=== PATIENT | female | born 1960 | race Caucasian/White ===

== ENCOUNTER 2016-06-05 13:14 | Emergency (ER) | payer MEDICARE, OTHER ==
[~2016-06-05] VITALS: Ht 170.2 cm; Wt 104.5 kg
[~2016-06-05 13:14] MED LIST: ATOR20TA86 PO; CARBXR400 PO; DULO60CA44 PO; FLUO20CA30 PO; METF850T2 PO; NAPR500T6 PO; OMEP20CA10 PO; PREM625 PO
[2016-06-05 13:22] LABS: GLUCOSE,POINT OF CARE 240 MG/DL (70-110)
[2016-06-05] MEDS ORDERED: INSLAN SQ (13:23)
[2016-06-05] MEDS ORDERED: TRAZ-144 PO (13:23)
[2016-06-05] MEDS ORDERED: HYDR25TA PO (13:23)
[2016-06-05] MEDS ORDERED: XALA2.5OS OU (13:23)
[2016-06-05] MEDS ORDERED: GABA-531 PO (13:23)
[2016-06-05] MEDS ORDERED: LEVO25TA9 PO (13:23)
[2016-06-05 16:58] VITALS: BP 150/100
== END 2016-06-05 17:01 | disposition home or self-care (01) ==
LOC: EMS 13:15
DX: S60.221A Contusion of right hand, initial encounter (principal); I10 Essential (primary) hypertension; E11.9 Type 2 diabetes mellitus without complications; K21.9 Gastro-esophageal reflux disease without esophagitis; E78.00 Pure hypercholesterolemia, unspecified; Z79.4 Long term (current) use of insulin; X58.XXXA Exposure to other specified factors, initial encounter; Y93.89 Activity, other specified; Y92.89 Other specified places as the place of occurrence of the external cause; Y99.8 Other external cause status
CPT/HCPCS: 82962; 99284

== ENCOUNTER 2018-07-29 19:20 | Emergency (ER) | payer MEDICARE, OTHER ==
[~2018-07-29] VITALS: Ht 165.1 cm; Wt 105.5 kg
[~2018-07-29 19:20] MED LIST changes: -DULO60CA44 PO; +GABA-531 PO; +HYDR25TA PO; +INSLAN SQ; +LEVO25TA9 PO; +METF-961 PO; -METF850T2 PO; -NAPR500T6 PO; -OMEP20CA10 PO; +TRAZ-252 PO; +XALA2.5OS OU
[2018-07-29 22:27] LABS: BASOPHILS % (AUTO) 0.6 % (0.0-2.0); EOSINOPHILS % (AUTO) 1.5 % (1.0-6.0); HEMATOCRIT 41.4 % (36-46); HEMOGLOBIN 14.1 g/dL (12.0-16.0); LYMPHOCYTES # (AUTO) 3.1 K/uL (1.0-4.8); LYMPHOCYTES % (AUTO) 35.3 % (22.0-44.0); MEAN CORPUSCULAR VOLUME 88 fL (80-100); MONOCYTES # (AUTO) 0.5 K/uL (0.1-1.0); MONOCYTES % (AUTO) 5.2 % (2.0-9.0); NEUTROPHILS # (AUTO) 5.1 K/uL (1.8-7.7); NEUTROPHILS % (AUTO) 57.4 % (40.0-70.0); PLATELET COUNT (AUTO) 285 K/uL (150-450); RED CELL DISTRIBUTION WIDTH 13.4 % (11.5-14.5)
[2018-07-29 22:30] LABS: ANION GAP 12 mmol/L (8-16); CALCIUM, TOTAL 9.8 mg/dL (8.8-10.5); CARBON DIOXIDE 27 mmol/L (22-29); CHLORIDE 100 mmol/L (98-107); CREATININE 0.78 mg/dL (0.60-1.30); GLOMERULAR FILTR. RATE CALC > 60 mL/min (>60); GLUCOSE,RANDOM 122 mg/dL (70-110); POTASSIUM 4.1 mmol/L (3.5-5.1); SODIUM SERUM 139 mmol/L (136-145); UREA NITROGEN, BLOOD 10 mg/dL (7-18)
[2018-07-29 22:36] LABS: ALANINE AMINOTRANSFERASE 29 U/L (12-78); ALKALINE PHOSPHATASE 50 U/L (46-116); ASPARTATE AMINOTRANSFERASE 26 U/L (15-37); BILIRUBIN,TOTAL 0.3 mg/dL (0.1-1.0); TOTAL PROTEIN, SERUM 8.7 g/dL (6.4-8.2)
[2018-07-29 23:05] VITALS: BP 133/79
== END 2018-07-29 23:35 | disposition home or self-care (01) ==
LOC: EMS 20:54
DX: R45.851 Suicidal ideations (principal); I10 Essential (primary) hypertension; E11.9 Type 2 diabetes mellitus without complications; F32.9 Major depressive disorder, single episode, unspecified; K21.9 Gastro-esophageal reflux disease without esophagitis; E78.00 Pure hypercholesterolemia, unspecified; Z90.49 Acquired absence of other specified parts of digestive tract; Z90.710 Acquired absence of both cervix and uterus; Z79.4 Long term (current) use of insulin; Z79.84 Long term (current) use of oral hypoglycemic drugs
CPT/HCPCS: 36415; 80053; 85025; 99285; G0480

== ENCOUNTER 2023-09-13 14:29 | Emergency (ER) | payer MEDICARE, OTHER ==
[~2023-09-13] VITALS: Ht 162.6 cm; Wt 77.3 kg
[~2023-09-13 14:29] MED LIST changes: +ATOR20TA PO; -ATOR20TA86 PO; +GABA-1181 PO; -GABA-531 PO; -HYDR25TA PO; +HYDR25TA2 PO; +METF-1185 PO; -METF-961 PO
[2023-09-13 14:36] VITALS: TEMP 97.9
[2023-09-13] MEDS ORDERED: SEMA2PEN SQ (14:39)
[2023-09-13] MEDS: LIDOCAINE 5% TRANSDERMAL PATCH TD ONE (15:08)
[2023-09-13] MEDS: KETOROLAC TROMETHAMINE 30 MG/ML VIAL IM ONE (15:08)
[2023-09-13] MEDS ORDERED: METH-659 PO (16:23)
[2023-09-13] MEDS ORDERED: HYDR-4062 PO (16:23)
[2023-09-13] MEDS ORDERED: IBUP-1506 PO (16:23)
[2023-09-13 16:33] VITALS: BP 112/70; PULSE 84; RESP 18
== END 2023-09-13 17:22 | disposition home or self-care (01) ==
LOC: EMS 14:29
DX: M54.42 Lumbago with sciatica, left side (principal); E11.9 Type 2 diabetes mellitus without complications; K21.9 Gastro-esophageal reflux disease without esophagitis; I10 Essential (primary) hypertension; Z79.4 Long term (current) use of insulin
CPT/HCPCS: 99283; 96372; J1885

== ENCOUNTER 2023-11-09 09:05 | Emergency (ER) | payer OTHER ==
[~2023-11-09] VITALS: Ht 167.6 cm; Wt 91.4 kg
[~2023-11-09 09:05] MED LIST changes: +HYDR-4062 PO; +IBUP-1506 PO; +METH-659 PO; +SEMA2PEN SQ
[2023-11-09 09:08] VITALS: BP 108/67; PULSE 89; RESP 16; TEMP 99; O2SAT 97
[2023-11-09] MEDS ORDERED: IBUP-1492 PO (09:55)
[2023-11-09] MEDS: IBUPROFEN 600 MG TABLET PO ONE (09:58)
== END 2023-11-09 10:04 | disposition home or self-care (01) ==
LOC: EMS 09:05
DX: M25.562 Pain in left knee (principal); E11.9 Type 2 diabetes mellitus without complications; I10 Essential (primary) hypertension; K21.9 Gastro-esophageal reflux disease without esophagitis; Z79.4 Long term (current) use of insulin
CPT/HCPCS: 82962; 99283

== ENCOUNTER 2024-11-17 19:17 | Emergency (ER) | payer MEDICARE, MEDICAID ==
[~2024-11-17] VITALS: Ht 165.1 cm; Wt 78.6 kg
[~2024-11-17 19:17] MED LIST changes: -FLUO20CA30 PO; +FLUO20CA32 PO; +IBUP-1492 PO
[2024-11-17 19:20] VITALS: TEMP 97.9
[2024-11-17 20:07] LABS: PLATELET COUNT (AUTO) 312 K/uL (150-450); RED BLOOD CELL COUNT(AUTO) 4.13 MIL/uL (4.00-5.20); RED CELL DISTRIBUTION WIDTH 14.3 % (11.5-14.5); WHITE BLOOD COUNT (AUTO) 11.6 K/uL (4.5-11.0)
[2024-11-17 20:16] LABS: CALCIUM, TOTAL 8.9 mg/dL (8.8-10.5); CREATININE 0.76 mg/dL (0.60-1.30); GLOMERULAR FILTR. RATE CALC > 60 mL/min (>60); GLUCOSE,RANDOM 156 mg/dL (70-110); SODIUM SERUM 135 mmol/L (136-145); UREA NITROGEN, BLOOD 22 mg/dL (7-18)
[2024-11-17 20:18] LABS: ASPARTATE AMINOTRANSFERASE 19.0 U/L (15-37); TOTAL PROTEIN, SERUM 7.7 g/dL (6.4-8.2)
[2024-11-17 20:27] LABS: TROPONIN I-HIGH SENSITIVITY 4 ng/L (<51)
[2024-11-17 22:06] LABS: APPEARANCE,URINE CLEAR (CLEAR); GLUCOSE, URINE (UA) NEGATIVE (NEGATIVE); LEUKOCYTE ESTERASE ,URINE NEGATIVE (NEGATIVE); NITRATE,URINE NEGATIVE (NEGATIVE); OCCULT BLOOD,URINE NEGATIVE (NEGATIVE); SPECIFIC GRAVITIY, URINE 1.024 (1.003-1.030)
[2024-11-17] MEDS: SODIUM CHLORIDE 0.9% 1,000 ML IV ONE (22:43)
[2024-11-17] MEDS: FAMOTIDINE 20 MG/2 ML VIAL IVP ONE (22:45)
[2024-11-18] MEDS: PIPERACILLIN/TAZO 3.375 GM/D5W 50 ML IV ONE (00:22)
[2024-11-18] MEDS: MORPHINE SULFATE 2 MG/ML SYRINGE IVP ONE (00:49)
[2024-11-18 01:00] VITALS: BP 112/78; PULSE 95; RESP 16; O2SAT 99
== END 2024-11-18 02:22 | disposition admitted as inpatient to this hospital (09) ==
LOC: EMS 19:17
DX: K56.50 Intestinal adhesions [bands], unspecified as to partial versus complete obstruction (principal); E03.9 Hypothyroidism, unspecified; E11.9 Type 2 diabetes mellitus without complications; E78.00 Pure hypercholesterolemia, unspecified; F32.A Depression, unspecified; K21.9 Gastro-esophageal reflux disease without esophagitis; I10 Essential (primary) hypertension; Z90.49 Acquired absence of other specified parts of digestive tract; Z90.710 Acquired absence of both cervix and uterus; Z79.818 Long term (current) use of other agents affecting estrogen receptors and estrogen levels; Z79.84 Long term (current) use of oral hypoglycemic drugs; Z79.85 Long-term (current) use of injectable non-insulin antidiabetic drugs; Z79.899 Other long term (current) drug therapy
CPT/HCPCS: 99285; 74176; 96361; 96375 ×2; 80048; 80076; 81003; 83690; 84484; 85025; 87040; 36415; 74018; 82962; 93005; 96365; 71045; J3490; J7030; J2270; J2543